=== PATIENT | female | born 1965 | race Caucasian/White ===

== ENCOUNTER 2017-05-10 05:15 | Day surgery (SDC) | payer OTHER ==
[2017-05-10] VITALS (7 sets, daily range): BP systolic 96–134; BP diastolic 51–63; PULSE 68–79; RESP 14–24; Ht 160 cm; Wt 55.0 kg
[~2017-05-10] VITALS: Ht 160 cm; Wt 55.0 kg
--- NOTE | 2017-05-10 06:31 | PREOPHP ---
DATE OF ADMISSION: 05/10/2017 HISTORY OF PRESENT ILLNESS: This is a 51-year-old lady, 4, para 2, with one spontaneous and one therapeutic . Her last normal menstrual period was a few days prior to admission. She was admitted for D and C, hysteroscopy and suction curettage. This patient bleeds very heavily with her periods associated with blood clots. She had an ultrasound done and ultrasound showed some submucosal fibroid with endometrial thickening. She was admitted for the above procedure. The procedures were explained to the patient. She understood everything totally. The risks, benefits and alternatives were discussed with her as well. NEW ORDER CLERK HISTORY: She had menarche at the age of 10, every 28 days' interval, 3 to 4 days' duration, and moderate in amount. She is 4, para 2, with 2 spontaneous abortions and 1 therapeutic . PERSONAL HISTORY: No history of TB, asthma. The patient does not smoke. She does not drink. She does not take any drugs. ALLERGIES: NO KNOWN ALLERGIES. FAMILY HISTORY: Noncontributory. PAST SURGICAL HISTORY: She had bilateral tubal ligation. REVIEW OF SYSTEMS: CARDIOVASCULAR: No chest pain. RESPIRATORY: No cough. GASTROINTESTINAL: No diarrhea. No vomiting. GENITOURINARY: No dysuria. PHYSICAL EXAMINATION: GENERAL APPEARANCE: A conscious, coherent lady in no acute distress. VITAL SIGNS: Blood pressure 120/80. Pulse rate 80 per minute. Respirations 16 per minute. BREASTS: Within normal limits. HEENT: Within normal limits. LUNGS: Within normal limits. ABDOMEN: Soft. No organomegaly. PELVIC: Exam revealed the cervix to be firm. The uterus is of 8 weeks' size and adnexa were negative for masses. RECTAL: Confirmed the pelvic findings. EXTREMITIES: No pedal edema. ADMITTING DIAGNOSES:: 1. Submucosal fibroid, intramural fibroid. 2. Menorrhagia. PLAN: The patient is planned to have the above procedure. Dictated By: Rula Olvera MD /[email or web address]/toan /Document#: [id number]
[2017-05-10] MEDS ORDERED: LACTATED RINGER'S 1,000 ML IV SCH (10:00)
[2017-05-10] MEDS ORDERED: DIPHENHYDRAMINE 50 MG INJ IV PRN (12:30)
[2017-05-10] MEDS ORDERED: hydrALAzine 20 MG INJ IV PRN (12:30)
[2017-05-10] MEDS ORDERED: ONDANSETRON 4 MG INJ IV PRN (12:30)
[2017-05-10] MEDS ORDERED: MEPERIDINE 25 MG INJ IV PRN (12:30)
[2017-05-10] MEDS ORDERED: EPHEDrine SULFATE 50 MG/5 ML SYG IV PRN (12:30)
[2017-05-10] MEDS ORDERED: FENTAnyl 50 MCG/ML VIAL IV PRN ×3 (12:30)
[2017-05-10] MEDS ORDERED: OXYCODONE/ACETAMINOPHEN (5/325) TAB PO PRN ×2 (12:30)
[2017-05-10] MEDS ORDERED: LABETALOL HCL 20MG INJ IV PRN (12:30)
[2017-05-10] MEDS ORDERED: ACETAMINOPHEN 325 MG TAB PO PRN (13:00)
[2017-05-11] MEDS ORDERED: LIDOCAINE 2% (SDV) 5 ML INJ ONE (18:02)
[2017-05-11] MEDS ORDERED: FENTAnyl 50 MCG/ML VIAL ONE ×2 (18:02)
[2017-05-11] MEDS ORDERED: ONDANSETRON 4 MG INJ ONE ×2 (18:02)
[2017-05-11] MEDS ORDERED: DEXAMETHASONE 4 MG/ML 1 ML INJ ONE (18:02)
--- NOTE | 2017-05-13 09:10 | OPR ---
DATE OF OPERATION: 05/10/2017 PREOPERATIVE DIAGNOSIS: Endometrial polyp, endometrial thickening, rule out submucous fibroid. POSTOPERATIVE DIAGNOSIS: Endometrial polyp, endometrial thickening, rule out submucous fibroid, pending pathology report. SURGEON: Rula Olvera MD. HEEL BLACKER: Automatic Transmission Mechanic. ANESTHESIA: General. OPERATION PERFORMED: Fractional dilatation and curettage. Hysteroscopy and suction curettage. TECHNIQUE: Under general anesthesia, the patient was prepped and draped in the usual fashion for vaginal surgery. Pelvic examined under anesthesia revealed the cervix to be firm, uterus about 8 weeks' size and adnexa were negative for masses. Then the heavy- weight vaginal retractor was put in placed. Anteriorly, the cervix was grasped with an Allis clamp, and the cervical dilatation of the Hegar 7 was proceeded. The uterus was sounded to about 8 cm. Then, the hysteroscope was inserted inside the uterine cavity and connected with the light source. The uterus was distended with normal saline. There were no polyps, no fibroids. Then the cervical curettage was done, and a small amount of tissue was obtained. Endometrial curettage was done, and a good amount of tissue was obtained. Suction tip size 6 was inserted inside the uterine cavity and suction curettage was done. A good amount of tissue was obtained. The uterus was intact during and after the procedure. The patient tolerated the procedure well. Estimated blood loss was minimal. Vital signs were stable during and after the procedure. Dictated By: Rula Olvera MD /[email or web address] /Document#: [id number]
== END 2017-05-10 14:07 | disposition home or self-care (01) ==
LOC: SDS 05:15
PROVIDERS: ATTEND Obstetrics & Gynecology
DX: N84.0 Polyp of corpus uteri (principal)
CPT/HCPCS: 84703; 86850; 86900; 86901; 88305; J1100; J2405; J3010